=== PATIENT | male | born 1955 | race Caucasian/White ===

== ENCOUNTER 2024-06-16 11:36 | Emergency (ER) | payer OTHER ==
[~2024-06-16] VITALS: Ht 157.5 cm; Wt 60.7 kg
[2024-06-16 11:37] VITALS: O2SAT 98
[2024-06-16] MEDS ORDERED: LIDO700A15 TP (12:11)
[2024-06-16 12:22] VITALS: BP 122/78; PULSE 82; RESP 16; TEMP 36.6; O2SAT 98
== END 2024-06-16 12:20 | disposition home or self-care (01) ==
LOC: ER 11:36
DX: M25.512 Pain in left shoulder (principal); Z98.890 Other specified postprocedural states; Z79.899 Other long term (current) drug therapy
CPT/HCPCS: 29240; 73030; 99283; A4565